=== PATIENT | male | born 1965 ===

== ENCOUNTER 2023-01-20 20:05 | Emergency (ER) | payer OTHER ==
[~2023-01-20] VITALS: Ht 188 cm; Wt 54.4 kg
== END 2023-01-20 21:25 | disposition home or self-care (01) ==
LOC: ER 20:05
DX: M54.2 Cervicalgia (principal); M25.512 Pain in left shoulder

== ENCOUNTER 2023-01-23 07:58 | Emergency (ER) | payer OTHER ==
[~2023-01-23] VITALS: Ht 188 cm; Wt 82.1 kg
[2023-01-23] MEDS ORDERED: CAMBIA50 MG PO (08:10)
[2023-01-23] MEDS ORDERED: NORFLEX100MG PO (08:10)
[2023-01-23] MEDS ORDERED: ORAPRED ODT10 MG PO (08:10)
== END 2023-01-23 09:47 | disposition home or self-care (01) ==
LOC: ER 07:58
DX: M50.30 Other cervical disc degeneration, unspecified cervical region (principal)

== ENCOUNTER 2023-02-02 07:16 | Emergency (ER) | payer OTHER ==
[~2023-02-02] VITALS: Ht 188 cm; Wt 85.7 kg
[~2023-02-02 07:16] MED LIST: CAMBIA50 MG PO; NORFLEX100MG PO; ORAPRED ODT10 MG PO
[2023-02-02] MEDS ORDERED: GRALISE600 MG (07:32)
== END 2023-02-02 10:39 | disposition home or self-care (01) ==
LOC: ER 07:16
DX: R53.81 Other malaise (principal); R05.9 Cough, unspecified

== ENCOUNTER 2023-02-17 06:03 | Emergency (ER) | payer OTHER ==
[~2023-02-17] VITALS: Ht 182.9 cm; Wt 72.6 kg
[~2023-02-17 06:03] MED LIST changes: +GRALISE600 MG
== END 2023-02-17 06:36 | disposition home or self-care (01) ==
LOC: ER 06:03
DX: G24.3 Spasmodic torticollis (principal)